=== PATIENT | male | born 1980 | race Caucasian/White ===

== ENCOUNTER 2019-10-16 04:40 | Inpatient (IN) | payer MEDICAID, OTHER ==
[~2019-10-16] VITALS: Ht 165.1 cm; Wt 90.2 kg
[2019-10-16 06:31] LABS: Basophils # (auto) 0 10 ^3/uL (0-0.2); Basophils % (auto) 0.3 % (0.0-2.0); Eosinophils # (auto) 0 10 ^3/uL (0-0.8); Eosinophils % (auto) 0.2 % (0.0-7.0); Hematocrit 43.1 % (41.0-53.0); Hemoglobin 14.7 g/dL (13.5-17.5); Lymphocytes # (auto) 0.7 10 ^3/uL (0.4-5.4); Lymphocytes % (auto) 6.6 % (10.0-50.0); Mean Corpuscular Hemoglobin 28.7 pg (28.0-32.0); Mean Corpuscular Hgb Conc. 34.2 g/dL (32.0-36.0); Mean Corpuscular Volume 84.1 fL (80.0-100.0); Monocytes # (auto) 0.7 10 ^3/uL (0-1.3); Monocytes % (auto) 6.9 % (0.0-12.0); Neutrophils # (auto) 8.5 10 ^3/uL (1.6-8.6); Nucleated Red Blood Cells % 0.1 %; Platelet Count (auto) 242 10^3/uL (140-450); Red Blood Cells 5.12 10^6/uL (4.5-5.90); White Blood Cell 9.9 10^3/uL (4.4-10.8)
[2019-10-16 06:45] LABS: INR 1.04 (0.9-1.15); Partial Thromboplastin Time 32.1 sec (23.64-32.05)
[2019-10-16 06:50] LABS: Albumin 3.7 g/dL (3.4-5.0); Potassium 3.5 mmol/L (3.5-5.1)
[2019-10-16 06:56] LABS: BUN/Creatinine Ratio 12.5; Bilirubin, Total 0.4 mg/dL (0.2-1.0); Total Protein 8.3 g/dL (6.4-8.2)
[2019-10-16] MEDS ORDERED: ACETAMINOPHEN 325 MG TAB PO ONE (07:30)
[2019-10-16] MEDS ORDERED: cefTRIAXone 1GM/50ML D5W 50 ML IV ONE (08:00)
[2019-10-16] MEDS ORDERED: AZITHROMYCIN 500MG/ 250ML 250 ML IV ONE (08:00)
[2019-10-16] MEDS ORDERED: DexAMETHasone SOD PHOS 4 MG/1ML SDV INJ IV ONE (08:00)
[2019-10-16] MEDS ORDERED: ZINC SULFATE 220mg CAP or TAB PO ONE (08:00)
[2019-10-16] MEDS ORDERED: ASCORBIC ACID 500 MG TAB PO ONE (08:00)
[2019-10-16] MEDS ORDERED: ONDANSETRON HCL 4 MG/2 ML VIAL IV ONE (09:30)
[2019-10-16] MEDS ORDERED: SODIUM CHLORIDE 0.9% 1,000 ML IV SCH (12:18)
[2019-10-16] MEDS ORDERED: NITROGLYCERIN 0.4 MG SL TAB SL PRN (12:30)
[2019-10-16] MEDS ORDERED: DexAMETHasone 4 MG TAB PO ONE (12:30)
[2019-10-16] MEDS ORDERED: ALUM & MAG HYDROX-SIMETH LIQ(MAALOX) 30 ML PO PRN (12:30)
[2019-10-16] MEDS ORDERED: LORazepam 0.5 MG TAB PO PRN (12:30)
[2019-10-16] MEDS ORDERED: HYDROcodone-ACET 5/325MG TAB PO PRN (12:30)
[2019-10-16] MEDS ORDERED: DOCUSATE SOD 100 MG CAP PO PRN (12:30)
[2019-10-16] MEDS ORDERED: FUROSEMIDE 20 MG/2 ML VIAL IV ONE (12:30)
[2019-10-16] MEDS ORDERED: MORPHINE SULF INJ 2 MG/ML SYRINGE 1ML IV PRN ×2 (12:30)
[2019-10-16] MEDS ORDERED: ONDANSETRON HCL 4 MG/2 ML VIAL IV PRN (12:30)
[2019-10-16] MEDS ORDERED: CHOLECALCIFEROL (VITD3) 1,000IU=25mCg TAB PO ONE (12:45)
[2019-10-16] MEDS ORDERED: DOXYCYCLINE 100 MG TAB/CAP PO ONE (12:45)
[2019-10-16] MEDS ORDERED: ASCORBIC ACID 1,000 MG TAB PO ONE (12:45)
[2019-10-16] MEDS ORDERED: ENOXAPARIN SOD 40 MG/0.4 ML SYRINGE SC ONE (12:45)
[2019-10-16 13:58] LABS: Urine WBC None Seen /hpf (0 - 3)
[2019-10-16 14:24] LABS: Urine Bacteria NONE SEEN /hpf (None Seen); Urine Blood Negative /uL (Negative); Urine Specific Gravity 1.006 (1.001-1.035)
[2019-10-16 14:27] LABS: Amphetamine Screen, Urine POSITIVE (NEGATIVE); Barbiturate Scree,Urine NEGATIVE (NEGATIVE); Benzodiazephine Screen, Urine NEGATIVE (NEGATIVE); Cannabinoid Screen, Urine NEGATIVE (NEGATIVE); Cocaine Screen, Urine NEGATIVE (NEGATIVE); Opiate Scree,Urine NEGATIVE (NEGATIVE)
[2019-10-16 14:35] LABS: Alcohol, Urine < 3.0 mg/dL (0-10); Phencyclidine Screen, Urine NEGATIVE (NEGATIVE)
[2019-10-16 16:31] LABS: Albumin 3.4 g/dL (3.4-5.0); Magnesium 2.6 mg/dL (1.6-2.6); Potassium 3.7 mmol/L (3.5-5.1)
[2019-10-16 16:41] LABS: BUN/Creatinine Ratio 12.5; Bilirubin, Total 0.3 mg/dL (0.2-1.0); CRP High Sensitivity 7.09 mg/dL (< 0.3); Total Protein 7.9 g/dL (6.4-8.2)
[2019-10-16 16:52] LABS: Basophils # (auto) 0 10 ^3/uL (0-0.2); Basophils % (auto) 0.2 % (0.0-2.0); Eosinophils # (auto) 0 10 ^3/uL (0-0.8); Hematocrit 42.4 % (41.0-53.0); Hemoglobin 14.4 g/dL (13.5-17.5); Lymphocytes # (auto) 0.5 10 ^3/uL (0.4-5.4); Lymphocytes % (auto) 6.4 % (10.0-50.0); Mean Corpuscular Hemoglobin 28.8 pg (28.0-32.0); Mean Corpuscular Volume 84.6 fL (80.0-100.0); Monocytes # (auto) 0.2 10 ^3/uL (0-1.3); Monocytes % (auto) 3.1 % (0.0-12.0); Neutrophils # (auto) 6.6 10 ^3/uL (1.6-8.6); Neutrophils % (auto) 90.3 % (37.0-80.0); Platelet Count (auto) 224 10^3/uL (140-450); Red Blood Cells 5.02 10^6/uL (4.5-5.90); Red Cell Distribution Width 13.4 % (11.8-14.3); White Blood Cell 7.3 10^3/uL (4.4-10.8)
[2019-10-16 16:58] LABS: Cholesterol 117 mg/dL (< 200); Triglycerides 55 mg/dL (< 150)
[2019-10-16 17:00] LABS: HDL Cholesterol 46 mg/dL (40-59); LDL Cholesterol 64 mg/dL (< 100)
--- NOTE | 2019-10-16 17:30 | NUR ---
Telemetry admit from ER JANETTENUVIA admitted to Telemetry unit after SBAR received. Patient oriented to BETTIE MARROQUINRN primary RN, unit, room, bed, and unit policies regarding patient care and visiting hours. Patient now on continuous telemetry monitoring, tele box #[id number] and telemetry reading on arrival to unit is sr 90. Patient weighed by bedscale and encouraged to call if they need something. All questions and concerns addressed, patient verbalized understanding. Note:
[2019-10-16 18:12] VITALS: BP 118/62
[2019-10-16] MEDS: FUROSEMIDE 20 MG/2 ML VIAL IV SCH (19:37)
--- NOTE | 2019-10-16 19:55 | NUR ---
Opening Shift Note Assumed care of patient, awake and alert, oriented x 4. On room air with even and unlabored respirations, no s/s of SOB or distress. Instructed patient on indication for incentive spirometer, patient was able to return demonstration of incentive spirometer with proper use of 1800ml inspire volume. Patient ambulates with steady gait and turns independently. Bed in lowest locked position with side rails up x 2 and call light within reach. Instructed on POC and to call for assist PRN, will continue to monitor for changes Q1hr and PRN.
[2019-10-16 20:56] VITALS: BP 116/74
[2019-10-16] MEDS: DOXYCYCLINE 100 MG TAB/CAP PO SCH (21:08)
[2019-10-16] MEDS: DexAMETHasone 4 MG TAB PO SCH (21:08)
[2019-10-16 22:00] VITALS: BP 121/69
[2019-10-16] MEDS: ALBUTEROL SULF HFA 90MCG INH 200DOSE IN SCH ×3 (22:00→23:48)
--- NOTE | 2019-10-16 23:48 | NUR ---
MDI GIVEN VIA SPACER.
[2019-10-17 05:00] VITALS: BP 113/71
[2019-10-17] MEDS: FUROSEMIDE 20 MG/2 ML VIAL IV SCH ×2 (06:01→18:57)
[2019-10-17] MEDS: ALBUTEROL SULF HFA 90MCG INH 200DOSE IN SCH ×4 (06:01→22:20)
--- NOTE | 2019-10-17 06:30 | NUR ---
Respiratory note: HR 68, RR 16, SPO2 97% ON RA, BS ARE CLEAR. INHALER ADMINISTERED, TOLERATED WELL. NO SIGNS OR SYMPTOMS OF RESPIRATORY DISTRESS NOTED AT THIS TIME.
--- NOTE | 2019-10-17 07:07 | NUR ---
Closing Note patient resting in bed on room air with even and unlabored respirations, no s/s of distress. Endorsed care to dayshift GUERLINE Jamison.
[2019-10-17 08:29] LABS: Basophils # (auto) 0 10 ^3/uL (0-0.2); Basophils % (auto) 0.2 % (0.0-2.0); Eosinophils # (auto) 0 10 ^3/uL (0-0.8); Hematocrit 45.8 % (41.0-53.0); Hemoglobin 15.1 g/dL (13.5-17.5); Lymphocytes # (auto) 0.7 10 ^3/uL (0.4-5.4); Lymphocytes % (auto) 11.5 % (10.0-50.0); Mean Corpuscular Hemoglobin 28.1 pg (28.0-32.0); Mean Corpuscular Volume 85.1 fL (80.0-100.0); Monocytes # (auto) 0.5 10 ^3/uL (0-1.3); Monocytes % (auto) 8.1 % (0.0-12.0); Neutrophils # (auto) 5.1 10 ^3/uL (1.6-8.6); Neutrophils % (auto) 80.2 % (37.0-80.0); Nucleated Red Blood Cells % 0.2 %; Platelet Count (auto) 223 10^3/uL (140-450); Red Blood Cells 5.38 10^6/uL (4.5-5.90); Red Cell Distribution Width 13.1 % (11.8-14.3); White Blood Cell 6.3 10^3/uL (4.4-10.8)
[2019-10-17 08:56] LABS: Albumin 3.5 g/dL (3.4-5.0); Anion Gap 6 (5-15); Blood Urea Nitrogen 16 mg/dL (7-18); Calcium 8.2 mg/dL (8.5-10.1); Carbon Dioxide 29 mmol/L (21-32); Chloride 102 mmol/L (98-107); Glucose 120 mg/dL (74-106); Magnesium 2.5 mg/dL (1.6-2.6); Potassium 3.9 mmol/L (3.5-5.1); Sodium 137 mmol/L (136-145)
[2019-10-17 09:03] LABS: INR 1.03 (0.9-1.15); Partial Thromboplastin Time 29.9 sec (23.64-32.05)
[2019-10-17 09:18] LABS: Alanine Aminotransferase 39 U/L (16-61); Alkaline Phosphatase 99 U/L (45-117); Aspartate Aminotransferase 30 U/L (15-37); BUN/Creatinine Ratio 15.7; Bilirubin, Total 0.3 mg/dL (0.2-1.0); CRP High Sensitivity 5.54 mg/dL (< 0.3); GFR African American 106 mL/min; GFR Non-African American 87 mL/min; Lactate Dehydrogenase 248 U/L (87-241); Phosphorus 4.4 mg/dL (2.5-4.90); Total Protein 8.4 g/dL (6.4-8.2); Uric Acid 6.2 mg/dL (3.5-7.2)
[2019-10-17] MEDS: DOXYCYCLINE 100 MG TAB/CAP PO SCH ×2 (09:22→21:17)
[2019-10-17] MEDS: ASCORBIC ACID 1,000 MG TAB PO SCH (09:22)
[2019-10-17] MEDS: DexAMETHasone 4 MG TAB PO SCH ×2 (09:23→21:17)
[2019-10-17] MEDS: ENOXAPARIN SOD 40 MG/0.4 ML SYRINGE SC SCH (09:24)
[2019-10-17] MEDS: ZINC SULFATE 220mg CAP or TAB PO SCH (09:24)
[2019-10-17] MEDS: CHOLECALCIFEROL (VITD3) 1,000IU=25mCg TAB PO SCH (09:25)
[2019-10-17 09:36] VITALS: BP 112/68
[2019-10-17] MEDS ORDERED: PANT40TA2 PO (12:43)
[2019-10-17] MEDS ORDERED: DEX4T PO (12:43)
[2019-10-17] MEDS ORDERED: ASCO10003 PO (12:43)
[2019-10-17] MEDS ORDERED: ZINC220T6 PO (12:43)
[2019-10-17] MEDS ORDERED: DOXY-286 PO (12:43)
[2019-10-17 13:00] VITALS: BP 150/68
--- NOTE | 2019-10-17 13:22 | NUR ---
Respiratory note: HR 96, RR 14, SPO2 92% ON RA, BS ARE CLEAR. MDI ADMINISTERED, TOLERATED WELL. NO SIGNS OR SYMPTOMS OF RESPIRATORY DISTRESS NOTED AT THIS TIME.
[2019-10-17 17:00] VITALS: BP 115/68
[2019-10-17] MEDS: ACETAMINOPHEN 500 MG TAB PO PRN (17:20)
--- NOTE | 2019-10-17 17:29 | NUR ---
CORRECTION OFFICER PENITENTIARY INFORMED RN PATIENT TEMP WAS 101. RN RECHECKED PATIENT TEMP WAS 102 PATIENT MEDICATED PER MD ORDERS. CALLED [employer] GAUGER CARLOSITALCHYNA INFORMED OF PATIENTS TEMPERATURE PER MD HOLD D/C FOR PATIENT BEING FEBRILE. ORDERS RECEIVED FOR BLOOD CULTURES. ORDERS RBV. WILL CARRY OUT. Addendum: 10/17/19 at 1734 by BETTIE MARROQUIN RN RN [employer] GAUGER HOSPITALIST DOCTOR BASSETT
--- NOTE | 2019-10-17 17:30 | NUR ---
COOLING MEASURES APPLIED.
[2019-10-17 22:00] VITALS: BP 118/59
[2019-10-18] MEDS: ACETAMINOPHEN 500 MG TAB PO PRN ×2 (02:31→12:04)
[2019-10-18 05:03] VITALS: BP 112/61
[2019-10-18] MEDS: FUROSEMIDE 20 MG/2 ML VIAL IV SCH (06:00)
--- NOTE | 2019-10-18 06:57 | NUR ---
Respiratory note: PT REFUSED MDI TX. NO SOB OR DISTRESS NOTED AT THIS TIME.
--- NOTE | 2019-10-18 07:45 | NUR ---
Opening Shift Note Assumed care of patient, awake, alert, and oriented. No S/S of distress/SOB or pain. Bed in lowest/locked position, bed rails up x2, call light within reach. Instructed on POC and to call for assist PRN. Will continue to monitor for changes Q1hr and PRN.
[2019-10-18 08:55] VITALS: BP 120/52
[2019-10-18] MEDS: ZINC SULFATE 220mg CAP or TAB PO SCH (10:01)
[2019-10-18] MEDS: DexAMETHasone 4 MG TAB PO SCH (10:01)
[2019-10-18] MEDS: CHOLECALCIFEROL (VITD3) 1,000IU=25mCg TAB PO SCH (10:02)
[2019-10-18] MEDS: DOXYCYCLINE 100 MG TAB/CAP PO SCH (10:02)
[2019-10-18] MEDS: ASCORBIC ACID 1,000 MG TAB PO SCH (10:02)
[2019-10-18] MEDS: ENOXAPARIN SOD 40 MG/0.4 ML SYRINGE SC SCH (10:02)
--- NOTE | 2019-10-18 11:20 | NUR ---
PHONE CALL SPOKE WITH DR POTTS RE: PATIENT DISCHARGE. D/C WAS HELD 10/16 DUE TO TEM[address]ATURE. PER DR POTTS PATIENT IS OK TO D/C, AND THAT PATIENT WILL HAVE TEMP FROM [facility]. PER DR POTTS; PATIENT EDUCATED DAY PRIOR OF COVID DISCHARGE INSTRUCTIONS AND MEDICATIONS. WILL CONTINUE TO MONITOR
--- NOTE | 2019-10-18 11:55 | NUR ---
TEMPERATURE PATIENT TEMP 102F. WILL MEDICATE PER MD ORDERS. WILL CONTINUE TO MONITOR
[2019-10-18] MEDS: ALBUTEROL SULF HFA 90MCG INH 200DOSE IN SCH (14:21)
--- NOTE | 2019-10-18 16:30 | NUR ---
Discharge instructions given as ordered. Encourage to follow up with PMD as instructed. All questions and concerns addressed. Patient verbalized understanding. IV removed with catheter intact, pressure dressing applied. Telemetry unit returned to ICU. Patient taken to vehicle via wheelchair with all personal belongings, accompanied by staff. No distress noted at time of departure.
== END 2019-10-18 16:30 | disposition home or self-care (01) | DRG 137 ==
LOC: ER 04:40 → TELE 04:41 → TELE-EAST 16:50
PROVIDERS: ADMIT Hospitalist; ATTEND Internal Medicine
DX: U07.1 COVID-19 (principal); J12.89 Other viral pneumonia; E66.9 Obesity, unspecified; D72.810 Lymphocytopenia; D72.829 Elevated white blood cell count, unspecified; F12.90 Cannabis use, unspecified, uncomplicated; F17.200 Nicotine dependence, unspecified, uncomplicated; F10.10 Alcohol abuse, uncomplicated; Y90.9 Presence of alcohol in blood, level not specified; F15.90 Other stimulant use, unspecified, uncomplicated; Z68.33 Body mass index [BMI] 33.0-33.9, adult
CPT/HCPCS: 36415; 71045; 80053; 80061; 80307; 81001; 82728; 83036; 83605; 83615; 83735; 83880; 84100; 84443; 84484; 84550; 85025; 85379; 85610; 85730; 86141; 87040; 87070; 87086; 87804; 87880; 93005; 94640; 96365; 96368; 96372; 96375; G0378; J0696; J1100; J2405

== ENCOUNTER 2019-10-19 13:46 | Emergency (ER) | payer MEDICAID ==
[~2019-10-19] VITALS: Ht 165.1 cm; Wt 86.2 kg
[~2019-10-19 13:46] MED LIST: ASCO10003 PO; DEX4T PO; DOXY-286 PO; PANT40TA2 PO; ZINC220T6 PO
[2019-10-19] MEDS ORDERED: ACETAMINOPHEN 325 MG TAB PO ONE (17:15)
[2019-10-19 17:37] VITALS: BP 116/72
== END 2019-10-19 18:17 | disposition home or self-care (01) ==
LOC: ER 13:46
DX: U07.1 COVID-19 (principal); Z77.22 Contact with and (suspected) exposure to environmental tobacco smoke (acute) (chronic)
CPT/HCPCS: 71045